=== PATIENT | male | born 1960 | race African-American/Black ===

== ENCOUNTER 2019-03-03 12:42 | Emergency (ER) | payer OTHER ==
[2019-03-03 13:07] VITALS: TEMP 98.4; BMI 38.4
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
[2019-03-03] MEDS ORDERED: IBUPROFEN 400 MG TABLET (FP) PO ONE (13:56)
[2019-03-03 15:10] VITALS: BP 138/95; PULSE 73
== END 2019-03-03 15:10 | disposition home or self-care (01) ==
LOC: JERFT 12:42 → JER 12:42 → JERFT 15:10
DX: S43.52XA Sprain of left acromioclavicular joint, initial encounter (principal); V43.52XA Car driver injured in collision with other type car in traffic accident, initial encounter; Y92.488 Other paved roadways as the place of occurrence of the external cause; Y93.89 Activity, other specified; Y99.8 Other external cause status; E78.00 Pure hypercholesterolemia, unspecified; E11.9 Type 2 diabetes mellitus without complications; Z79.84 Long term (current) use of oral hypoglycemic drugs; J45.909 Unspecified asthma, uncomplicated
CPT/HCPCS: 73030-TC-LT-FY; 99282-25

== ENCOUNTER 2020-09-07 15:39 | Emergency (ER) | payer OTHER ==
[2020-09-07 15:49] VITALS: BP 147/86; PULSE 87; TEMP 98.6; BMI 33.2
[2020-09-07] MEDS ORDERED: SODIUM CHLORIDE 1,000 ML IV STA (16:40)
[2020-09-07 17:32] LABS: BASO % 0.7 % (0-2.0); EOS % 2.5 % (0-4.5); HEMATOCRIT 41.7 % (35.4-49); HEMOGLOBIN 14.1 GM/dL (11.7-16.9); LYMPH % 25.8 % (8-40); MCH 32.3 pg (25.7-33.7); MCHC 33.7 g/dl (32.0-35.9); MEAN CELL VOLUME 95.7 fl (80-96); MEAN PLT VOLUME 8.2 fl (7.5-11.1); MONO % 4.7 % (3.8-10.2); NEUT % 66.3 % (42.8-82.8); PLATELET COUNT 322 K/MM3 (134-434); RBC 4.36 M/mm3 (4.00-5.60); RDW 13.7 % (11.9-15.9); WHITE BLOOD COUNT 7.3 K/mm3 (4.0-10.0)
[2020-09-07 17:43] LABS: CHLORIDE 106 mmol/L (98-107); POTASSIUM 4.7 mmol/L (3.5-5.1); SODIUM 138 mmol/L (136-145)
[2020-09-07 17:45] LABS: ANION GAP 6 MMOL/L (8-16); BLOOD UREA NITROGEN 13.4 mg/dL (7-18); CO2 26 mmol/L (21-32); GLUCOSE,RANDOM 317 mg/dL (74-106)
[2020-09-07 17:48] LABS: SGPT/ALT 28 U/L (13-61)
[2020-09-07 17:49] LABS: BILIRUBIN,TOTAL 0.4 mg/dL (0.2-1); CREATININE 1.1 mg/dL (0.55-1.3); SGOT/AST 17 U/L (15-37); TOT PROT 7.6 g/dl (6.4-8.2)
[2020-09-07 17:50] LABS: ALK PHOS 98 U/L (45-117)
[2020-09-07 18:58] LABS: URINE APPEARANCE CLEAR; URINE BILIRUBIN NEGATIVE (NEGATIVE); URINE COLOR YELLOW; URINE GLUCOSE (UA) 3+ (NEGATIVE); URINE KETONE NEGATIVE (NEGATIVE); URINE LEUK ESTERASE NEGATIVE (NEGATIVE); URINE NITRITE NEGATIVE (NEGATIVE); URINE PROTEIN NEGATIVE (NEGATIVE)
== END 2020-09-07 19:00 | disposition home or self-care (01) ==
LOC: JER 15:39
PROC: 3E0337Z Introduction of Electrolytic and Water Balance Substance into Peripheral Vein, Percutaneous Approach (ICD-10-PCS; principal; 2020-09-07)
DX: R42 Dizziness and giddiness (principal); E11.9 Type 2 diabetes mellitus without complications
CPT/HCPCS: 36415; 70450-TC; 80053; 81003; 82550; 82962; 84439; 84443; 84484; 85025; 87086; 93005; 93010; 99285-25